=== PATIENT | male | born 1940 | race Caucasian/White ===

== ENCOUNTER 2018-08-11 15:45 | Inpatient (IN) ==
--- NOTE | 2018-08-11 17:02 | PROVIDER DOCUMENTATION ---
This chart was entered by Luiza Hernandez Scribe, acting as scribe for Johnathan Berumen CRNP. HPI-Musculoskeletal Pain/Inj - GENERAL Chief Complaint: Fall Stated Complaint: FALL Time Seen by Provider: 08/11/18 16:27 Source: patient, EMS (first re) - HX OF PRESENT ILLNESS-MUSKULOSKELTAL Nature of Presenting Problem: 77 yom is currently staying at [facility] and fell yesterday. pt had a xray done yesterday and per ems came back negative. pt sttill having pain this am and can not bear weight , so pt had another xray of left hip and shows a fx. pt was sent to ed Quality of Pain: reports: aching Severity in ED: moderate Onset/Duration: 24 hours ago Timing: still present Modifying Factors: improves with: immobilization. worse with: movement, palpation Any recent injury?: Yes (fall yesterday) Locality of Occurance: Other (SNF) Similar Symptoms Previously?: No Recently seen or treated by another doctor?: No Review of Systems - Adult - REVIEW OF SYSTEMS - ADULT Constitutional: denies: chills, fever Eyes: reports: no symptoms reported Ears, Nose, Mouth & Throat: reports: no symptoms reported Cardiovascular: denies: chest pain, edema, palpitations, syncope Respiratory: reports: no symptoms reported Gastrointestinal: denies: abdominal pain, diarrhea, nausea, vomiting Genitourinary: reports: no symptoms reported Musculoskeletal: reports: see HPI, joint pain (left hip). denies: back pain, neck pain Integumentary: reports: no symptoms reported Neurological: denies: dizziness/vertigo, headache/migraines Psychiatric: reports: no symptoms reported Endocrine: reports: no symptoms reported Hematologic/Lymphatic: reports: no symptoms reported Allergic/Immunologic: reports: no symptoms reported All Other Systems: Reviewed and Negative Past History - Adult - PAST MEDICAL HISTORY-ADULT Review of Records: reports: Nursing Assessment Review, Medications Reviewed Major Childhood Illnesses: reports: denies history Cardiovascular: reports: denies history Respiratory: reports: denies history Gastrointestinal: reports: denies history Genitourinary: reports: denies history Musculoskeletal: reports: denies history Neurological: reports: denies history Endocrine/Immune: reports: denies history Other Conditions: reports: denies history - IMMUNIZATION STATUS Childhood Immunizations: See Nurse Assessment Flu Vaccine: See Nurse Assessment - FAMILY HISTORY Family History: reviewed, not pertinent Physical Exam-Injury Related - Physical Exam-Injury Related Initial Vital Signs Reviewed: Yes General Appearance: alert, mild distress, thin, other. negative: appears well Eyes: PERRL/EOMI, pale conjunctivae Head, Ears, Nose, Mouth & Throat: normocephalic/atraumatic. negative: moist mucous membranes (dry oral) Neck: normal inspection Respiratory: chest non-tender, lungs clear, normal breath sounds Cardiovascular: normal peripheral pulses, regular rate, rhythm Chest/Breast: deferred Abdominal Exam: normal bowel sounds, non tender, soft, no organomegaly, no pulsatile mass Female Genitalia/Pelvic Exam: deferred Rectal Exam: deferred Lymphatic: no adenopathy Back Exam: normal inspection Extremity: no pedal edema, no calf tenderness, normal capillary refill, deformity (left hip), tenderness (left hip). negative: normal range of motion, normal gait, normal inspection Integumentary: warm/dry, pallor, ashen. negative: normal color Neurologic: grossly normal Psych/Mental Status: normal mood/affect, normal thought content, normal thought process, oriented x 3 - Glascow Coma Score Best Eye Response (Della): (4) open spontaneously Best Verbal Response (Della): (5) oriented Best Motor Response ([place]): (6) obeys commands Della Total: 15 Progress - PLAN OF CARE/RESULTS Progress/Plan/Lab Results: Vital Signs - 8 hr 08/11/18 16:29 Temperature 98.4 F Pulse Rate 90 Respiratory Rate 16 Blood Pressure 133/89 O2 Sat by Pulse Oximetry 96 Laboratory Results - last 24 hr 08/11/18 08/11/18 08/11/18 16:44 16:44 16:44 WBC 11.72 H RBC 4.47 L Hgb 13.2 L Hct 40.5 L MCV 90.6 MCH 29.5 MCHC 32.6 L RDW Std Deviation 12.6 Plt Count 292 MPV 11.2 H Immature Gran % (Auto) 0.3 Neut % (Auto) 71.2 Lymph % (Auto) 16.3 L [place] % (Auto) 10.4 H Eos % (Auto) 1.5 Baso % (Auto) 0.3 Immature Gran # (Auto) 0.04 Neut # (Auto) 8.33 H Lymph # (Auto) 1.91 [place] # (Auto) 1.22 H Eos # (Auto) 0.18 Baso # (Auto) 0.04 Sodium 135 L Potassium 4.7 Chloride 100 Carbon Dioxide 27 Anion Gap 8 BUN 19 Creatinine 0.9 Estimated GFR/1.73 m2 > 60 BUN/Creatinine Ratio 21 Glucose 107 H Calculated Osmolality 273 Calcium 9.1 Total Bilirubin 0.50 AST 17 ALT 15 Alkaline Phosphatase 129 H Creatine Kinase 98 Troponin T < 0.010 Total Protein 6.9 Albumin 3.7 Globulin 3.2 Albumin/Globulin Ratio 1.2 Urine Source Urine Color Urine Turbidity Urine pH Ur Specific [place] Urine Protein Ur Glucose (Stick) Ur Ketones (Stick) Urine Blood Urine Nitrite Urine Bilirubin Urobilinogen Dipstick Urine Leukocytes Urine WBC (Auto) Urine RBC (Auto) U Epithel Cells (Auto) Urine Bacteria (Auto) 08/11/18 17:45 WBC RBC Hgb Hct MCV MCH MCHC RDW Std Deviation Plt Count MPV Immature Gran % (Auto) Neut % (Auto) Lymph % (Auto) [place] % (Auto) Eos % (Auto) Baso % (Auto) Immature Gran # (Auto) Neut # (Auto) Lymph # (Auto) [place] # (Auto) Eos # (Auto) Baso # (Auto) Sodium Potassium Chloride Carbon Dioxide Anion Gap BUN Creatinine Estimated GFR/1.73 m2 BUN/Creatinine Ratio Glucose Calculated Osmolality Calcium Total Bilirubin AST ALT Alkaline Phosphatase Creatine Kinase Troponin T Total Protein Albumin Globulin Albumin/Globulin Ratio Urine Source CATH Urine Color YELLOW Urine Turbidity CLEAR Urine pH 6.0 Ur Specific [place] 1.026 Urine Protein 30 A Ur Glucose (Stick) NEGATIVE Ur Ketones (Stick) NEGATIVE Urine Blood TRACE A Urine Nitrite NEGATIVE Urine Bilirubin NEGATIVE Urobilinogen Dipstick 2 A Urine Leukocytes NEGATIVE Urine WBC (Auto) <10 Urine RBC (Auto) <10 U Epithel Cells (Auto) <10 Urine Bacteria (Auto) NEGATIVE Orders Category Date Time Status Dunlap Cath Insertion ORDERED Care 08/11/18 16:37 Active Saline Loc NOW Care 08/11/18 16:35 Active CHEST-1 VIEW [RAD] Stat Exams 08/11/18 16:[address] HEAD/C-SPINE W/O CONTRAST [CT] Stat Exams 08/11/18 16:[address] PELVIS W/O CONTRAST [CT] Stat Exams 08/11/18 16:37 Completed CBC WITH ELECTRONIC DIFF [HEME] Stat Lab 08/11/18 16:44 Completed CK PROFILE [SP CHEM] Stat Lab 08/11/18 16:44 Completed COMPREHENSIVE METABOLIC PANEL [CHEM] Stat Lab 08/11/18 16:44 Completed TROPONIN T Stat Lab 08/11/18 16:44 Completed URINALYSIS W/POSS RFLX CULT [URINALYSIS] Stat Lab 08/11/18 17:45 Completed EKG [EKG] Stat Ther 08/11/18 16:36 Ordered Laboratory Tests 08/11/18 08/11/18 08/11/18 16:44 16:44 16:44 WBC 11.72 H RBC 4.47 L Hgb 13.2 L Hct 40.5 L MCV 90.6 MCH 29.5 MCHC 32.6 L RDW Std Deviation 12.6 Plt Count 292 MPV 11.2 H Immature Gran % (Auto) 0.3 Neut % (Auto) 71.2 Lymph % (Auto) 16.3 L [place] % (Auto) 10.4 H Eos % (Auto) 1.5 Baso % (Auto) 0.3 Immature Gran # (Auto) 0.04 Neut # (Auto) 8.33 H Lymph # (Auto) 1.91 [place] # (Auto) 1.22 H Eos # (Auto) 0.18 Baso # (Auto) 0.04 Sodium 135 L Potassium 4.7 Chloride 100 Carbon Dioxide 27 Anion Gap 8 BUN 19 Creatinine 0.9 Estimated GFR/1.73 m2 > 60 BUN/Creatinine Ratio 21 Glucose 107 H Calculated Osmolality 273 Calcium 9.1 Total Bilirubin 0.50 AST 17 ALT 15 Alkaline Phosphatase 129 H Creatine Kinase 98 Troponin T < 0.010 Total Protein 6.9 Albumin 3.7 Globulin 3.2 Albumin/Globulin Ratio 1.2 Discussed results and plan of care with patient. Patient agrees with plan and verbalizes understanding. Result Diagrams: 08/11/18 16:44 08/11/18 16:44 - XRAY 1 XRAY Study: Chest ([facility] [address] , [address], [place] [address] Department of Imaging Patient: ELSA KIRKPATRICKADM Date: 08/11/18MR#: [id number] : 1940ADM Status: REG ERAcct#: [id number] Age/Sex: 77/MRoom/Bed: Loc: ED Ordering Physician: Johnathan Berumen Family ysician: Nestor Posada MD Reason for Procedure: Fall/admit Signed EXAM: CHEST-1 VIEW INDICATION: Fall/admit TECHNIQUE: One view COMPARISON: None. FINDINGS: The lungs appear somewhat hyperinflated suggesting likely COPD. There is mild chronic appearing interstitial thickening bilaterally suggesting mild fibrosis. The lungs are grossly clear, otherwise. There is no discrete pleural fluid collection or pneumothorax. The cardiomediastinal silhouette and central vasculature are grossly unremarkable. IMPRESSION: Suggestion of mild fibrotic change and likely COPD. No definite acute pathology. Electronically signed by Elsa Forrester 08/11/2018 5:38 PM 08/11/181737 Interpreting Physician: Elsa Forrester MD Dictated Date/Time: 08/11/181735 cc: Johnathan Berumen; Nestor Posada MD) XRAY Interpretation: See note - CT/MRI 1 CT Study: Cervical Spine ([facility] [address] , [address], [place] [address] Department of Imaging Patient: ELSA KIRKPATRICKADM Date: 08/11/18#: [id number] : 1940ADM Status: [facility] ERAcct#: [id number] Age/Sex: 77/MRoom/Bed: Loc: ED Ordering Physician: Johnathan Berumen Family Physician: Nestor Posada MD Reason for Procedure: Fall ___ Signed EXAM: CT HEAD/C-SPINE W/O CONTRAST INDICATION: Fall TECHNIQUE: This exam was performed using automated exposure control, adjustment of mA or kV according to patient size, and/or use of iterative reconstruction technique. COMPARISON: None. FINDINGS: Head: There is moderate diffuse brain atrophy. There is patchy low attenuation in the periventricular and subcortical white matter suggesting moderate to advanced microangiopathy. There is no definite acute infarct given the limited sensitivity of CT versus MRI. There is no discrete intracranial mass, mass effect, or intracranial hemorrhage. The surrounding soft tissues are essentially unremarkable. The calvaria is intact. C-spine: There is severe multilevel degenerative facet arthropathy and multilevel degenerative disc disease. There is mild anterolisthesis of C4 on C5 as well as kyphosis that appears to be related to the degenerative changes. This causing various degrees of neuroforaminal and milder central canal narrowing at multiple levels. Otherwise, there is no discrete fracture, acute subluxation, or intrinsic osseous lesion. The surrounding soft tissues are essentially unremarkable. IMPRESSION: 1.Chronic appearing changes as described but no evidence of acute intracranial pathology. 2.Advanced multilevel degenerative arthropathy but no evidence of fracture or other definite acute C- spine injury. Electronically signed by Elsa Forrester 08/11/2018 5:17 PM 08/11/181716 Interpreting Physician: Elsa Forrester MD Dictated Date/Time: 08/11/181712 cc: Johnathan Berumen; Nestor Posada MD), Head CT Results: See note 2 CT Study: Pelvis ([facility] [address] [facility], [address], [place] [address] Department of Imaging Patient: ELSA KIRKPATRICKADM Date: 08/11/18#: [id number] : 1940ADM [facility] [id number] Age/Sex: 77/MRoom/Bed: Loc: ED Ordering Physician: Johnathan Berumen Family Physician: Nestor Posada MD Reason for Procedure: fall Signed EXAM: CT PELVIS W/O CONTRAST INDICATION: fall TECHNIQUE: This exam was performed using automated exposure control, adjustment of mA or kV according to patient size, and/or use of iterative reconstruction technique. COMPARISON: None. FINDINGS: There is an intertrochanteric fracture of the left femur. There is mild comminution. Fracture lines extend to the base of the femoral neck and inferiorly to the proximal femoral shaft. The femoral neck is somewhat impacted. There is no other fracture or dislocation involving the pelvis, sacrum, or right hip. There are degenerative changes involving the lower lumbar spine. There is abundant stool in the rectum suggesting possible constipation. There is soft tissue edema around the fractured left hip. IMPRESSION: Intertrochanteric fracture of the left hip as described. Electronically signed by Elsa Forrester 08/11/2018 5:29 PM 08/11/181728 Interpreting Physician: Elsa Forrester MD Dictated Date/Time: 08/11/181726 cc: Johnathan Berumen; Nestor Posada MD) Impression: See EMR Report (EXAM: CT PELVIS W/O CONTRAST INDICATION: fall TECHNIQUE: This exam was performed using automated exposure control, adjustment of mA or kV according to patient size, and/or use of iterative reconstruction technique. COMPARISON: None. FINDINGS: There is an intertrochanteric fracture of the left femur. There is mild comminution. Fracture lines extend to the base of the femoral neck and inferiorly to the proximal femoral shaft. The femoral neck is somewhat impacted. There is no other fracture or dislocation involving the pelvis, sacrum, or right hip. There are degenerative changes involving the lower lumbar spine. There is abundant stool in the rectum suggesting possible constipation. There is soft tissue edema around the fractured left hip. IMPRESSION: Intertrochanteric fracture of the left hip as described. Electronically signed by Elsa Forrester 08/11/2018 5:29 PM 08/11/181728 Interpreting Physician: Elsa Forrester MD Dictated Date/Time: 07/17 cc: Johnathan Berumen; Nestor Posada MD) CT Results: See note - CONSULTS/PCP/HOSPITALIST Notification #1 *Consult/PCP/Hospitalist*: Dr. Tabares Time Discussed: 18:07 Reason/Comments: Consult Consult Disposition: other (Admit to hospitilist and consult) #2 Consult: Dr. Pérez Time Discussed: 18:20 Reason/Comments: Admission Consult Disposition: Will see in ED, Admit Departure - Departure Date of Disposition Decision: 08/11/18 Time of Disposition Decision: 18:08 DIAGNOSIS: Intertrochanteric fracture of left femur Qualifiers: Encounter type: initial encounter Fracture type: closed Fracture alignment: displaced Qualified Code(s): S72.142A - Displaced intertrochanteric fracture of left femur, initial encounter for closed fracture Disposition: ADMITTED INPATIENT 09 Certified Medical Emergency: Emergent Condition: Stable Referrals and Follow-Ups: Nestor Posada MD [Primary Care Provider] - - Critical Care Note This patient required my direct & personal management of CC.: No Attestation - Physician/ AMINATA Attestation Patient care was provided by Advanced Practice Provider:: Yes Advanced Practice Provider:: Johnathan Berumen Advanced Practice Provider documentation review:: The Mid-level provider documentation, treatment plan and medical decision making was reviewed by the physician who agrees with all treatment and medical decision making by the MLP. The physician spent face to face time with patient:: No Advanced Practice Provider documentation review:: Supervising physician onsite and consulted in the evaluation and care of this patient. The physician did not have a face to face encounter with the patient. This chart was documented by the indicated scribe, (Luiza Hernandez Scribe) and accurately reflects the services I performed and decisions made by me, Johnathan Berumen CRNP, as attested by the provider's signature.
[2018-08-11 17:07] LABS: BASO# 0.04 X1000 (0.0-0.2); BASO% 0.3 % (0.0-0.8); EOS# 0.18 X1000 (0.0-0.7); EOS% 1.5 % (0.0-10.0); HEMATOCRIT 40.5 % (42.0-52.0); HEMOGLOBIN 13.2 g/dL (14.0-18.0); IMM GRAN# 0.04 X1000 (0.0-0.04); IMM GRAN% 0.3 % (0.0-0.5); LYMPH# 1.91 X1000 (1.2-3.4); LYMPH% 16.3 % (20.5-51.1); MCH 29.5 PG (27-31); MCHC 32.6 g/dL (33-37); MCV 90.6 FL (81-99); MONO# 1.22 X1000 (0.11-0.59); MONO% 10.4 % (1.7-9.3); MPV 11.2 FL (7.4-10.4); NEUT# 8.33 X1000 (1.4-6.5); NEUT% 71.2 % (42.2-75.2); PLT 292 X1000 (130-400); RBC 4.47 XMIL (4.7-6.1); RDW 12.6 % (11.5-14.5); WBC 11.72 X1000 (4.8-10.8)
--- NOTE | 2018-08-11 17:20 | Diag Imaging Result Doc PS360 ---
EXAM: CT HEAD/C-SPINE W/O CONTRAST INDICATION: Fall TECHNIQUE: This exam was performed using automated exposure control, adjustment of mA or kV according to patient size, and/or use of iterative reconstruction technique. COMPARISON: None. FINDINGS: Head: There is moderate diffuse brain atrophy. There is patchy low attenuation in the periventricular and subcortical white matter suggesting moderate to advanced microangiopathy. There is no definite acute infarct given the limited sensitivity of CT versus MRI. There is no discrete intracranial mass, mass effect, or intracranial hemorrhage. The surrounding soft tissues are essentially unremarkable. The calvaria is intact. C-spine: There is severe multilevel degenerative facet arthropathy and multilevel degenerative disc disease. There is mild anterolisthesis of C4 on C5 as well as kyphosis that appears to be related to the degenerative changes. This causing various degrees of neuroforaminal and milder central canal narrowing at multiple levels. Otherwise, there is no discrete fracture, acute subluxation, or intrinsic osseous lesion. The surrounding soft tissues are essentially unremarkable. IMPRESSION: 1.Chronic appearing changes as described but no evidence of acute intracranial pathology. 2.Advanced multilevel degenerative arthropathy but no evidence of fracture or other definite acute C-spine injury. Electronically signed by Shaka Forrester 08/11/2018 5:17 PM
[2018-08-11 17:24] LABS: AGAP 8; ALB/GLOB RATIO 1.2; ALBUMIN 3.7 g/dL (3.5-5.0); ALKALINE PHOSPHATASE 129 U/L (32-122); BUN 19 mg/dL (8-22); CALCIUM 9.1 mg/dL (8.8-10.2); CHLORIDE 100 mmol/L (98-107); CK PROFILE 98 U/L (24-204); COSMO 273; CREATININE 0.9 mg/dL (0.7-1.2); ESTIMATED GFR > 60; GLUCOSE 107 mg/dL (70-104); GOT 17 U/L (10-34); GPT 15 U/L (10-44); POTASSIUM 4.7 mmol/L (3.5-5.1); SODIUM 135 mmol/L (136-145); TCO2 27 mmol/L (25-35); TOTAL PROTEIN 6.9 g/dL (6.3-8.3)
--- NOTE | 2018-08-11 17:31 | Diag Imaging Result Doc PS360 ---
EXAM: CT PELVIS W/O CONTRAST INDICATION: fall TECHNIQUE: This exam was performed using automated exposure control, adjustment of mA or kV according to patient size, and/or use of iterative reconstruction technique. COMPARISON: None. FINDINGS: There is an intertrochanteric fracture of the left femur. There is mild comminution. Fracture lines extend to the base of the femoral neck and inferiorly to the proximal femoral shaft. The femoral neck is somewhat impacted. There is no other fracture or dislocation involving the pelvis, sacrum, or right hip. There are degenerative changes involving the lower lumbar spine. There is abundant stool in the rectum suggesting possible constipation. There is soft tissue edema around the fractured left hip. IMPRESSION: Intertrochanteric fracture of the left hip as described. Electronically signed by Shaka Forrester 08/11/2018 5:29 PM
--- NOTE | 2018-08-11 17:40 | Diag Imaging Result Doc PS360 ---
EXAM: CHEST-1 VIEW INDICATION: Fall/admit TECHNIQUE: One view COMPARISON: None. FINDINGS: The lungs appear somewhat hyperinflated suggesting likely COPD. There is mild chronic appearing interstitial thickening bilaterally suggesting mild fibrosis. The lungs are grossly clear, otherwise. There is no discrete pleural fluid collection or pneumothorax. The cardiomediastinal silhouette and central vasculature are grossly unremarkable. IMPRESSION: Suggestion of mild fibrotic change and likely COPD. No definite acute pathology. Electronically signed by Shaka Forrester 08/11/2018 5:38 PM
[2018-08-11 18:07] LABS: URINE SOURCE CATH
[2018-08-11 18:10] LABS: BILIRUBIN URINE NEGATIVE (NEGATIVE); BLOOD URINE TRACE (NEGATIVE); COLOR YELLOW; GLUCOSE URINE NEGATIVE (NEGATIVE); KETONE URINE NEGATIVE (NEGATIVE); LEUKOCYTES URINE NEGATIVE (NEGATIVE); NITRITE URINE NEGATIVE (NEGATIVE); PROTEIN URINE 30 mg/dL (NEGATIVE); SP GRAVITY URINE 1.026; TURBIDITY URINE CLEAR (CLEAR); UR EPITHELIAL CELLS <10 /HPF (<10); URINE BACTERIA NEGATIVE /HPF; URINE RBC <10 /HPF (<10); URINE WBC <10 /HPF (<10); UROBILINOGEN URINE 2 mg/dL (NORMAL)
[2018-08-11] MEDS ORDERED: MIRALAX PO PRN (18:49)
[2018-08-11] MEDS ORDERED: TYLENOL 10 MG/KG PO PRN (18:49)
--- NOTE | 2018-08-11 19:39 | HISTORY AND PHYSICAL ---
CHIEF COMPLAINT: This patient has been transferred from [facility] to this facility due to left hip pain, he had a fall yesterday. HISTORY OF PRESENT ILLNESS: A 77-year-old, male, with apparently past medical history of dementia, probably hypertension as well. He is currently staying at [facility] and as per the report, he fell yesterday. I personally called [facility] and talked to one of the nurses, but apparently this patient was recently discharged from [facility] and was transferred to [facility] yesterday, so they do not know very well the patient, but he fell yesterday. They did an x-ray that did not see any abnormality, but the patient was complaining of pain and they did it again and they realized that this patient had a left hip fracture. I do not have any family members at the bedside. I asked the nurse at [facility] to send documentation that they had from [facility]. I had 2 phone numbers, one of them apparently is his and the other one, his daughter, but none of them, I tried to call both of them but did not work. Their phone numbers are #[phone] and [phone]. This patient is lying in bed. He is not complaining of pain at this moment. He is not answering any of my questions. He is able to talk and he is complaining of pain when I try to touch his left hip, but he is not following commands at all. When he talks, he does not make any sense. We did a chest x-ray that showed possible COPD with mild fibrotic changes. We did a CT scan of the head and neck that did not show any acute abnormality, but showed advanced multilevel degenerative arthropathy but no fracture or acute C-spine injury. Pelvic CT scan showed an intertrochanteric fracture of the left hip. This patient will be admitted. I will ask for a diet right now, but I requested to do a bedside swallow evaluation before feeding him. I consulted the orthopedic surgeon, but the problem is that we do not have any family members at the bedside to authorize the surgery, and the patient cannot make any decisions at this moment. I am not quite sure about his baseline. In the meantime, also I will put him on Clinimix. Vital signs are stable. REVIEW OF SYSTEMS: Unknown. PAST MEDICAL HISTORY: Likely dementia, hypertension, and possible COPD. PAST FAMILY HISTORY: Unknown. SOCIAL HISTORY: Unknown, but apparently he was recently discharged from [facility]. PHYSICAL EXAMINATION: VITAL SIGNS: Temperature 98.4, pulse 90, respiratory rate 16, blood pressure 133/89, oxygen saturation 96 on room air. HEENT: Head normocephalic. No trauma. PERRLA. NECK: Supple. No JVD. Central trachea. CHEST: Decreased breath sounds globally. Some crepitus at the bases. ABDOMEN: Soft, nontender, nondistended. EXTREMITIES: No edema, no clubbing. No cyanosis. Left hip pain. The left lower extremity is not rotated at this moment. NEUROLOGICAL EXAMINATION: This patient is sleepy. He is able to talk, but he does not make sense, he complains about pain when I touch the left hip and he withdraws with pain. He moves all 4 extremities, but I am not quite sure about his strength. LABORATORY: WBC 11.7, hemoglobin 13.2, hematocrit 40.5, platelets 292. Sodium 135, potassium 4.7, chloride 100, bicarbonate 27, BUN 19, creatinine 0.9, glucose 107, calcium 9.1. AST 17, ALT 15, alkaline phosphatase 129. ASSESSMENT AND PLAN: 1. Left intertrochanteric hip fracture, apparently this patient fell yesterday at [facility]. They did an x-ray yesterday and also one x-ray today, and they sent this patient over here for evaluation, I tried to contact the family, the and the daughter, phone numbers [phone] and [phone],a but I could not talk to them. I will start feeding this patient since I do not know if this patient is going to be able to get the surgery tomorrow, I have consulted Orthopedic surgery. We do not have at this moment a person to authorize the surgery. 2. Hypertension. I will continue with his home dose of blood pressure medication. 3. Possible chronic obstructive pulmonary disease, aware. He is not having shortness of breath and the oxygen saturation is normal. 4. Dementia, if this is his baseline his dementia is quite severe. I have requested a palliative care evaluation because I need to know his goal of care. I could not discuss with him his resuscitation status. CT scan of the head and neck without any new abnormality. Further recommendations pending hospital course. cc: Aime Biggs MD
[2018-08-11] MEDS ORDERED: TYLENOL PO PRN (20:32)
--- NOTE | 2018-08-11 20:39 | ORTHOPAEDICS CONSULTATION ---
DATE: 08/11/2018 HISTORY OF PRESENT ILLNESS: The patient is a pleasant 77-year-old male with underlying dementia, who is currently a resident at [facility]. He has been recently discharged from [facility] and was transferred to [facility] yesterday. The patient had a fall yesterday, and underwent initial x-rays which were negative. The x-rays were repeated today and reveal a left intertrochanteric femur fracture. The history is obtained from the medical records. Orthopedic consultation is requested. PAST MEDICAL HISTORY: Dementia, hypertension, possible COPD. ALLERGIES: No known drug allergies. PHYSICAL EXAMINATION: The patient is resting comfortably. He is confused. His bilateral upper extremities have no obvious deformities. He does not appear to have any tenderness to palpation or tenderness on gentle movement. His right lower extremity has no obvious palpable deformity throughout. The left lower extremity has tenderness to palpation on the hip, tenderness to gentle movement. Calf is soft. He has active dorsiflexion and plantar flexion bilaterally. DIAGNOSTIC DATA: CT scan was reviewed, revealing a left intertrochanteric femur fracture. PLAN: At this point the patient will be admitted to the hospital. We will plan on proceeding with intramedullary nailing of the left femur once able to discuss with the family, given the patient's underlying dementia. We will await further discussion with family. cc: Lavell Tabares MD
[2018-08-11] MEDS ORDERED: DESYREL PO SCH (21:00)
--- NOTE | 2018-08-11 21:26 | ORTHOPAEDICS PROGRESS NOTE ---
DATE: 08/11/2018 Discussed risks, benefits with surgery with including risks of anesthesia, , bleeding, infection, failure to relieve pain, postoperative stiffness, nerve injury, loss of fixation and other imponderables. All of her questions were answered and agreed to proceeding with intramedullary nailing left femur in the morning. cc: Lavell Tabares MD
[2018-08-11] MEDS: DESYREL PO SCH (22:52)
[2018-08-11] MEDS: CLINIMIX E 4.25%-5% SOLUTION 1,000 ML IV SCH (22:52)
[2018-08-12] MEDS ORDERED: FENTANYL ONE (06:23)
[2018-08-12 06:29] LABS: BASO# 0.06 X1000 (0.0-0.2); BASO% 0.6 % (0.0-0.8); EOS# 0.23 X1000 (0.0-0.7); EOS% 2.3 % (0.0-10.0); HEMATOCRIT 36.9 % (42.0-52.0); HEMOGLOBIN 12.1 g/dL (14.0-18.0); LYMPH# 2.31 X1000 (1.2-3.4); MCHC 32.8 g/dL (33-37); MCV 91.6 FL (81-99); MONO# 0.99 X1000 (0.11-0.59); MONO% 9.8 % (1.7-9.3); MPV 11.6 FL (7.4-10.4); NEUT# 6.47 X1000 (1.4-6.5); NEUT% 64.3 % (42.2-75.2); PLT 279 X1000 (130-400); RBC 4.03 XMIL (4.7-6.1); RDW 12.5 % (11.5-14.5); WBC 10.06 X1000 (4.8-10.8)
[2018-08-12 07:01] LABS: AGAP 9; ALB/GLOB RATIO 0.9; ALBUMIN 3.2 g/dL (3.5-5.0); ALKALINE PHOSPHATASE 114 U/L (32-122); BUN 19 mg/dL (8-22); CALCIUM 9.2 mg/dL (8.8-10.2); CHLORIDE 104 mmol/L (98-107); COSMO 284; CREATININE 0.8 mg/dL (0.7-1.2); ESTIMATED GFR > 60; GLUCOSE 100 mg/dL (70-104); GOT 16 U/L (10-34); GPT 13 U/L (10-44); MAGNESIUM 2.1 mg/dL (1.5-2.7); POTASSIUM 4.6 mmol/L (3.5-5.1); SODIUM 141 mmol/L (136-145); TCO2 28 mmol/L (25-35); TOTAL BILIRUBIN 0.57 mg/dL (0.20-1.00); TOTAL PROTEIN 6.9 g/dL (6.3-8.3)
[2018-08-12] MEDS ORDERED: KEFZOL 1 GM/D5W 1 GM/50 ML IVPB ONE (07:37)
[2018-08-12] MEDS ORDERED: AMIDATE ONE (08:22)
[2018-08-12] MEDS ORDERED: NEO-SYNEPHRINE ONE (08:22)
[2018-08-12] MEDS ORDERED: XYLOCAINE-MPF 2% ONE (08:22)
[2018-08-12] MEDS ORDERED: OFIRMEV 1000 MG/ISOTONIC SOLN 1,000 MG/100 ML BOTTLE ONE (08:23)
[2018-08-12] MEDS: NORVASC PO SCH (09:32)
[2018-08-12] MEDS: CLINIMIX E 4.25%-5% SOLUTION 1,000 ML IV SCH ×2 (09:33→14:46)
[2018-08-12] MEDS: MORPHINE ONE ×2 (09:34→09:39)
--- NOTE | 2018-08-12 10:04 | OPERATIVE NOTE ---
PROCEDURE DATE: 08/12/2018 PREOPERATIVE DIAGNOSIS: Left intertrochanteric femur fracture. POSTOPERATIVE DIAGNOSIS: Left intertrochanteric femur fracture. PROCEDURE: Intramedullary nailing left femur with Synthes 11 x 400 mm TFN nail. SURGEON: Lavell Tabares MD. ANESTHESIA: General. IV FLUIDS: 1300 mL lactated Ringer. ESTIMATED BLOOD LOSS: 25 mL. COMPLICATIONS: None. INDICATIONS: The patient is a pleasant 77-year-old male with underlying dementia who was recently transferred from [facility]. He had a fall a couple of days ago and had some pain and discomfort. Initial x-rays did not see any initial abnormality. He continued with discomfort. A repeat x-ray was obtained and revealed a left intertrochanteric femur fracture. He was seen in emergency room and Orthopedic consultation requested. Recommendation to proceed with intramedullary nailing of the left femur was offered. Risks and benefits of surgery were explained, including the risks of anesthesia, , bleeding, infection, failure to relieve pain, postoperative stiffness, nerve injury, blood clots, and other imponderables. All questions answered. The patient and family wish to proceed with surgery. DETAILS OF OPERATION: The patient was taken to the operating room, underwent general anesthesia. After adequate anesthesia was obtained, he was placed on the fracture table. Reduction was obtained and confirmed. We had good alignment confirmed with C-arm visualization both AP and lateral projections. Left lower extremity was subsequently prepped and draped in usual sterile fashion. Approximately 3 fingerbreadths proximal to the greater trochanter, a lateral incision was made. Blunt dissection was performed to the gluteus herb. A guide pin was then placed along the tip of the greater trochanter and advanced in the intramedullary canal. We had good positioning in both AP and lateral projections. A starting reamer was then passed. A ball-tip guide pin was then placed in the intramedullary canal. The length of the nail was determined to be 400 mm. A 12 mm reamer was passed in preparation for an 11-mm diameter nail. An 11 x 400 mm Synthes TFN nail was then placed. Ball-tipped guide pin was then removed. Once confirmed in good positioning, using the outrigger guide, an incision was made along the lateral proximal thigh and was advanced to the lateral proximal femur along the cortex. The guide pin was then advanced across the fracture site in the femoral neck and head. We had good positioning in both AP and lateral projections. The length of the helical blade was determined to be 90 mm. The lateral cortex was reamed. A 90-mm helical blade was then advanced and had good purchase. The proximal set screw was tightened in the standard fashion. Using perfect [place] technique, a small stab incision was placed on the lateral distal femur and 1 static locking screw was placed from laterally to medially. Final C-arm visualization revealed good alignment in both AP and lateral projections. Good alignment of the fracture. Wounds were copiously irrigated. 0 Vicryl was used to repair the deep fascia proximal wound, 2-0 Vicryl was used to repair the deep fascia in the wound laterally, followed by 2-0 Vicryl in the 2 proximal wounds and skin erasto in all the wounds. Adaptic, sterile 4 x 4, ABD pad, and tape to the left lower extremity. Patient tolerated the procedure well. No complications. Transferred to the recovery room in stable condition. cc: Lavell Tabares MD
[2018-08-12] MEDS ORDERED: ZOFRAN IV PRN (11:11)
[2018-08-12] MEDS ORDERED: MORPHINE IV PRN (11:11)
[2018-08-12] MEDS ORDERED: MILK OF MAGNESIA PO PRN (11:11)
[2018-08-12] MEDS ORDERED: OXY IR PO PRN (11:11)
[2018-08-12] MEDS ORDERED: NS 1,000 ML IV SCH (11:15)
[2018-08-12] MEDS ORDERED: HALDOL IV PRN (11:15)
[2018-08-12] MEDS ORDERED: DUONEB (A & A) INH PRN (13:07)
--- NOTE | 2018-08-12 13:33 | PROGRESS NOTE ---
DATE: 08/12/2018 SUBJECTIVE: The patient is resting in bed. His is present in the room. OBJECTIVE: Vital Signs: Temperature 97.6 degrees, pulse 89, respirations 20, blood pressure is 142/80. Oxygen saturation is 99%. HEENT: Atraumatic, normocephalic. Cardiovascular: S1, S2. Respiratory: Has evidence of good air entry bilaterally. Abdomen: Soft, nontender. No masses felt. Extremities: No evidence of edema. Central nervous system: The patient resting and could not be adequately assessed. LABORATORY DATA: WBCs 10.06, hematocrit is 36.9 with a platelet count of 279,000. Sodium is 141, potassium 4.6, chloride is 104, bicarb 28, BUN is 19, creatinine 0.8. ASSESSMENT AND PLAN: 1. Right intact trochanteric hip fracture. Status post repair. Optimize pain control. Maintain patient on DVT prophylaxis. Incentive spirometry and also initiate physical therapy when recommended by Orthopedics. 2. Hypertension. Continue current antihypertensive regimen. 3. Chronic obstructive pulmonary disease. Stable. Nebulized bronchodilators as needed. 4. Dementia. Supportive care and cholinesterase inhibitor can be started, if needed. cc: Omar Marrero MD
[2018-08-12] MEDS: KEFZOL 1 GM/D5W 1 GM/50 ML IVPB IV SCH (15:04)
[2018-08-12] MEDS: TYLENOL PO SCH (15:04)
[2018-08-12] MEDS: DUONEB (A & A) INH SCH ×3 (16:17→23:35)
[2018-08-13] MEDS: PERIDEX MT SCH ×2 (00:42→10:56)
[2018-08-13] MEDS: CLINIMIX E 4.25%-5% SOLUTION 1,000 ML IV SCH (00:42)
[2018-08-13] MEDS: COLACE PO SCH ×2 (00:43→22:22)
[2018-08-13] MEDS: KEFZOL 1 GM/D5W 1 GM/50 ML IVPB IV SCH (00:43)
[2018-08-13] MEDS: DESYREL PO SCH ×2 (00:43→22:21)
[2018-08-13] MEDS: TYLENOL PO SCH ×3 (00:44→22:22)
[2018-08-13] MEDS: DUONEB (A & A) INH SCH ×6 (03:05→23:20)
[2018-08-13] MEDS: XARELTO PO SCH (06:14)
--- NOTE | 2018-08-13 06:44 | ORTHOPAEDICS PROGRESS NOTE ---
DATE: 08/13/2018 SUBJECTIVE: The patient is a 77-year-old male who is 1 day status post intramedullary and intramedullary nailing of the left femur. He is currently resting comfortably. He is confused secondary to dementia. He is afebrile. The left lower extremity dressing is intact. His calf is soft. He is able to flex his toes. LABS: Pending. IMPRESSION: Postoperative day #1 status post intramedullary nailing left femur. PLAN: At this point given patient will begin mobilization with physical therapy with weightbearing as tolerated left lower extremity, patient will go back to [facility] for inpatient rehabilitation once medically cleared. cc: Lavell Tabares MD
[2018-08-13 07:08] LABS: BASO# 0.03 X1000 (0.0-0.2); BASO% 0.3 % (0.0-0.8); EOS# 0.05 X1000 (0.0-0.7); EOS% 0.5 % (0.0-10.0); HEMATOCRIT 33.9 % (42.0-52.0); HEMOGLOBIN 10.9 g/dL (14.0-18.0); IMM GRAN# 0.02 X1000 (0.0-0.04); IMM GRAN% 0.2 % (0.0-0.5); LYMPH# 1.85 X1000 (1.2-3.4); LYMPH% 19.4 % (20.5-51.1); MCH 29.5 PG (27-31); MCHC 32.2 g/dL (33-37); MCV 91.9 FL (81-99); MONO# 0.83 X1000 (0.11-0.59); MONO% 8.7 % (1.7-9.3); MPV 11.8 FL (7.4-10.4); NEUT# 6.74 X1000 (1.4-6.5); NEUT% 70.9 % (42.2-75.2); PLT 241 X1000 (130-400); RBC 3.69 XMIL (4.7-6.1); RDW 12.4 % (11.5-14.5); WBC 9.52 X1000 (4.8-10.8)
[2018-08-13 07:51] LABS: AGAP 6; ALB/GLOB RATIO 0.8; ALBUMIN 2.9 g/dL (3.5-5.0); ALKALINE PHOSPHATASE 103 U/L (32-122); BUN 22 mg/dL (8-22); CALCIUM 8.8 mg/dL (8.8-10.2); CHLORIDE 101 mmol/L (98-107); COSMO 276; CREATININE 0.8 mg/dL (0.7-1.2); ESTIMATED GFR > 60; GLUCOSE 86 mg/dL (70-104); GOT 20 U/L (10-34); GPT 13 U/L (10-44); POTASSIUM 4.3 mmol/L (3.5-5.1); SODIUM 137 mmol/L (136-145); TCO2 30 mmol/L (25-35); TOTAL BILIRUBIN 0.49 mg/dL (0.20-1.00); TOTAL PROTEIN 6.5 g/dL (6.3-8.3)
--- NOTE | 2018-08-13 08:39 | EKG Report ---
Test Performed on : 08/11/2018 6:52:53 PM Test Reason : admit Blood Pressure : / mmHG Vent. Rate : 092 BPM Atrial Rate : 092 BPM P-R Int : 188 ms QRS Dur : 090 ms QT Int : 354 ms P-R-T Axes : 038 -08 101 degrees QTc Int : 437 ms Sinus rhythm. with fusion complexes and premature atrial complexes. with aberrant conduction. Septal infarct , age undetermined ST & T wave abnormality, consider lateral ischemia Abnormal ECG No previous ECGs available Unconfirmed Result
[2018-08-13] MEDS: NORVASC PO SCH (10:52)
[2018-08-13] MEDS: FERROUS SULFATE PO SCH (10:52)
--- NOTE | 2018-08-13 12:21 | PROGRESS NOTE ---
DATE: 08/13/2018 SUBJECTIVE: The patient is resting in bed, and has present in the room. OBJECTIVE: Vital Signs: Temperature 98.5 degrees, pulse 90, respiratory rate 20, blood pressure is 120/85, and oxygen saturation is 96%. HEENT: Atraumatic, normocephalic. Cardiovascular: S1, S2. Respiratory: Evidence of good air entry bilaterally. Abdomen: Soft, nontender. No masses felt. Extremities: No evidence of edema. Central nervous system: No obvious focal deficits noted. LABORATORY: WBC is 9.52, hematocrit 33.9, with a platelet count of 241,000. Sodium is 137, potassium 4.3, chloride is 101, bicarb 30, BUN is 22, and creatinine 0.8. ASSESSMENT AND PLAN: 1. Right hip fracture status post repair. Optimize pain control. Maintain patient on DVT prophylaxis. Incentive spirometry as needed, physical therapy when recommended by Orthopedics. 2. Hypertension. Continue current antihypertensive regimen. 3. COPD. Nebulized bronchodilators as needed. 4. Dementia. Supportive care, and will start patient on a cholinesterase inhibitor. cc: Omar Marrero MD [facility]
[2018-08-13] MEDS: ARICEPT PO SCH (13:17)
[2018-08-14] MEDS: PERIDEX MT SCH ×2 (00:45→13:16)
[2018-08-14] MEDS: DUONEB (A & A) INH SCH ×3 (05:22→11:00)
[2018-08-14 05:46] LABS: HEMATOCRIT 35.7 % (42.0-52.0); HEMOGLOBIN 11.4 g/dL (14.0-18.0)
[2018-08-14] MEDS: XARELTO PO SCH (06:38)
[2018-08-14] MEDS: TYLENOL PO SCH ×2 (06:38→13:15)
--- NOTE | 2018-08-14 06:58 | ORTHOPAEDICS PROGRESS NOTE ---
DATE: 08/14/2018 SUBJECTIVE: The patient is a 77-year-old male who is 2 days status post intramedullary nailing of the left femur. He is currently resting comfortably. PHYSICAL EXAMINATION: The patient's left lower extremity, his wounds look good. There is no signs or symptoms of infection. Calf is soft. His hemoglobin is 11.4, hematocrit 35.7. IMPRESSION: Postoperative day #2 status post intramedullary nailing of the left femur. PLAN: At this point, the patient will be allowed to mobilize with physical therapy, weightbearing as tolerated left lower extremity. He is stable from an orthopedic standpoint. We will be available if needed. cc: Lavell Tabares MD
[2018-08-14] MEDS ORDERED: HALDOL IM PRN (11:25)
[2018-08-14 12:25] VITALS: BP 144/71
--- NOTE | 2018-08-14 12:53 | DISCHARGE SUMMARY ---
ADMISSION DATE: 08/11/2018 DISCHARGE DATE: 08/14/2018 DIAGNOSES: 1. Right hip fracture, status post intramedullary nailing. 2. Hypertension. 3. Chronic obstructive pulmonary disease. 4. Dementia. CONSULTS: Dr. Tabares, orthopedics. DIAGNOSTICS: 1. CT of the head and C-spine revealed chronic appearing changes as described. CT of the head and C-spine revealed advanced multilevel degenerative arthropathy but no evidence of fracture or other definite acute C-spine injury, chronic appearing changes but no evidence of acute intracranial pathology. 2. CT of the pelvis with intertrochanteric fracture of the left hip. 3. Microbiology, blood cultures x2 revealed no growth after 48 hours. 4. Urine culture revealed no growth. HOSPITAL COURSE: Mr. Valiente presented to the emergency room after falling at [facility]. He was found to have a left intertrochanteric femur fracture for which he underwent nailing on 08/12/2018. He has done well with weightbearing as tolerated with physical therapy. Thankfully, he is ready for discharge to rehab. He has been confused but I met with his at the bedside and apparently he has dementia the is quite advanced, and he has been agitated on and off but we believe is related to pain, case discussed with , she agreed with plan. DISCHARGE VITAL SIGNS: Blood pressure is 151/90, with heart rate of 99, respirations 16, temperature 98.4 degrees oral, with room air saturations of 95-97%. DISCHARGE PHYSICAL EXAMINATION: Cardiovascular: Regular rate and rhythm. S1, S2 appreciated. He has no lower extremity edema. Peripheral pulses are palpable x4 extremities. Pulmonary: Breath sounds are clear. No increased work of breathing noted. Chest rises and falls symmetrically with respiration. Gastrointestinal: Abdomen is soft, nontender, nondistended with bowel sounds in all 4 quadrants. DISCHARGE MEDICATIONS: 1. Trazodone 50 mg p.o. at bedtime. 2. Xarelto 10 mg p.o. q.24 hours. 3. MiraLAX 17 g p.o. daily p.r.n. constipation. 4. Oxycodone IR 5 mg q.3 hours p.r.n. 5. Melatonin 3 mg tablet. He takes 2 tablets at bedtime. 6. Milk of magnesia 30 mL p.o. daily p.r.n. constipation. 7. Ativan 0.5 p.o. b.i.d. p.r.n. agitation. 8. Norvasc 2.5 mg p.o. daily. 9. Ferrous sulfate 325 mg p.o. daily with breakfast. FOLLOWUP: 1. He needs to follow up with Dr. Tabares in 3 to 4 weeks. 2. He is being discharged in transfer to rehab in stable condition. This is a greater than 30 minute discharge. During the hospitalization, Mr. Valiente was Do Not Resuscitate level 1. Dictated by YARIEL Monsalve for Aime Biggs MD cc: YARIEL Monsalve MD MTDD
[2018-08-14] MEDS: FERROUS SULFATE PO SCH (13:16)
[2018-08-14] MEDS: ARICEPT PO SCH (13:16)
[2018-08-14] MEDS: NORVASC PO SCH (13:16)
== END 2018-08-14 14:24 | DRG 481 ==
LOC: SUPCPDRO → ED 15:45 → 4N 20:12 → SUATTDRO 20:12
PROVIDERS: ATTEND Internal Medicine
CPT/HCPCS: 51702; 70450; 71010; 71045; 72125; 72192; 76000; 80053; 81001; 82550; 83735; 84443; 84484; 85014; 85018; 85025; 87040; 87088; 93005; 94640; 94760; 97110; 97162; 97530; 99285; A9270; J0131; J0690; J2270; J2370; J3010